=== PATIENT | male | born 1970 | race Caucasian/White ===

== ENCOUNTER 2017-10-05 14:27 | Outpatient (CLI) | payer OTHER, SELFPAY ==
--- NOTE | 2017-10-05 14:30 | DI.RAD.S_ITS ---
PROCEDURE: PAIN L/S TRANSFORAMINAL INJECT INDICATIONS: PAIN FINDINGS: Fluoroscopic spot filming was performed to verify placement of spinal needles at the right L1 to neural foramen level(s), as labeled on the films. Appropriate location(s) of the needle tip(s) was confirmed by injection of iodinated contrast. IMPRESSION: Successful right L1 to neural foraminal needle tip localization for transforaminal epidural steroid injection. Dictated by: Mark Chambers M.D. on 10/05/2017 at 16:41 Approved by: Mark Chambers M.D. on 10/05/2017 at 16:42
[2017-10-05 14:34] VITALS: BP 112/73; PULSE 84; RESP 15; TEMP 36.4; O2SAT 97
--- NOTE | 2017-10-05 15:02 | PM.PROC.1 ---
Procedures Date/Time Date of procedure: 10/05/17 Time of procedure: 15:35 General Procedure description: POST OP DIAGNOSIS 1. HNP WITH RADICULAR FEATURES, 2. MULTILEVEL CENTRAL STENOSIS, PROCEDURES 1. FLUORSCOPICALLY GUIDED CONTRAST CONTROLLED INTERLAMINAR EPIDURAL STEROID INJECTION - L1/2 PHYSICIAN: DO CONSTANTINE Kern Nacho is referred by Dr. Gonzalez for treatment of Bilateral Foraminal Stenosis L>R LE symptoms. FINDINGS Multilevel Central Spinal Stenosis with Nerve Root Compression DESCRIPTION OF PROCEDURE Fluoroscopically guided, contrast-controlled L1/2 translaminar epidural steroid injection. Following denial of allergy and review of potential side effects and complications, including, but not necessarily limited to, infection, allergic reaction, local tissue breakdown, temporary as well as permanent nerve injury, paralysis, stroke and possible , the patient indicated that the patient understood and agreed to proceed. An informed consent document was signed by the patient, witnessed by a nurse, and placed in the patient's chart. Additionally, other treatment options including modalities, medications, and physical therapy were reviewed with the patient. In the prone position, following sterile prep and drape of the lumbar region, the L1/2 translaminar space was identified fluoroscopically. The skin was anesthetized via a 25-gauge, 1.5-inch needle with 1% lidocaine solution. At this point, a 22-gauge short bevel spinal needle was atraumatically introduced and advanced under fluoroscopic guidance into the region of the L1/2 translaminar space. Depth was confirmed on lateral view. Radiological data, including multiple fluoroscopic views of the lumbar spine, reveal a spinal needle at the L1/2 translaminar space. Lateral views then show placement of the needle in the epidural space. Subsequent views show contrast material flowing superiorly and inferiorly in the epidural space. No vascular or intrathecal uptake is observed. At this point, using loss of resistance technique with saline and air, the epidural space was entered. This was confirmed following negative aspiration with injection of approximately 1.5 cc of Isovue 200, showing excellent epidural flow without vascular or intrathecal uptake. At this point, 1 cc of 1% lidocaine solution combined with 3 cc or 20 mg of dexamethasone and 80mg Depo medrol was injected without incident. The patient was then transferred to the recovery area where they were observed for an appropriate period of time after the injection.The procedure tolerated the procedure well without signs or symptoms of complications prior to transfer to the recovery area continued monitoring without incident. The patient reported a VAS score of 6 prior to the procedure and a post-procedure VAS of 0. Total Fluoroscopy Time: 11.8 seconds Total Conscious Sedation Time: 24min POST OP INSTRUCTIONS The patient was provided a Pain Log to continue to record their response to the target-specific procedure prior to follow-up visit with their referring physician. Additionally, specific post-injection care instructions and a contact number to our office were provided if concerns arise regarding possible complications associated with the procedure are suspected. Tee Stephen DO
[2017-10-05 15:16] VITALS: BP 124/38; PULSE 69; RESP 16; O2SAT 100
[2017-10-05 15:22] VITALS: BP 110/74; PULSE 62; RESP 16; O2SAT 100
[2017-10-05] MEDS: IOPAMIDOL 15 ML VIAL 3 ML INJ (15:23)
[2017-10-05] MEDS: BUPIVACAINE 0.25% (PF) VIAL 2 ML INJ (15:23)
[2017-10-05] MEDS: methylPREDNISolone acetate 80 MG/ML VIAL INJ (15:23)
[2017-10-05] MEDS: DEXAMETHASONE 10 MG/ML VIAL 20 MG INJ (15:23)
[2017-10-05 15:26] VITALS: BP 111/67; PULSE 64; RESP 18; O2SAT 100
--- NOTE | 2017-10-05 15:35 | P.PCN_ITS ---
Procedures Date/Time Date of procedure: 10/05/17 Time of procedure: 15:35 General Procedure description: POST OP DIAGNOSIS 1. HNP WITH RADICULAR FEATURES, 2. MULTILEVEL CENTRAL STENOSIS, PROCEDURES 1. FLUORSCOPICALLY GUIDED CONTRAST CONTROLLED INTERLAMINAR EPIDURAL STEROID INJECTION - L1/2 PHYSICIAN: DO CONSTANTINE Kern Nacho is referred by Dr. Gonzalez for treatment of Bilateral Foraminal Stenosis L> R LE symptoms. FINDINGS Multilevel Central Spinal Stenosis with Nerve Root Compression DESCRIPTION OF PROCEDURE Fluoroscopically guided, contrast-controlled L1/2 translaminar epidural steroid injection. Following denial of allergy and review of potential side effects and complications, including, but not necessarily limited to, infection, allergic reaction, local tissue breakdown, temporary as well as permanent nerve injury, paralysis, stroke and possible , the patient indicated that the patient understood and agreed to proceed. An informed consent document was signed by the patient, witnessed by a nurse, and placed in the patient's chart. Additionally, other treatment options including modalities, medications, and physical therapy were reviewed with the patient. In the prone position, following sterile prep and drape of the lumbar region, the L1/2 translaminar space was identified fluoroscopically. The skin was anesthetized via a 25-gauge, 1.5-inch needle with 1% lidocaine solution. At this point, a 22-gauge short bevel spinal needle was atraumatically introduced and advanced under fluoroscopic guidance into the region of the L1/2 translaminar space. Depth was confirmed on lateral view. Radiological data, including multiple fluoroscopic views of the lumbar spine, reveal a spinal needle at the L1/2 translaminar space. Lateral views then show placement of the needle in the epidural space. Subsequent views show contrast material flowing superiorly and inferiorly in the epidural space. No vascular or intrathecal uptake is observed. At this point, using loss of resistance technique with saline and air, the epidural space was entered. This was confirmed following negative aspiration with injection of approximately 1.5 cc of Isovue 200, showing excellent epidural flow without vascular or intrathecal uptake. At this point, 1 cc of 1 % lidocaine solution combined with 3 cc or 20 mg of dexamethasone and 80mg Depo medrol was injected without incident. The patient was then transferred to the recovery area where they were observed for an appropriate period of time after the injection.The procedure tolerated the procedure well without signs or symptoms of complications prior to transfer to the recovery area continued monitoring without incident. The patient reported a VAS score of 6 prior to the procedure and a post- procedure VAS of 0. Total Fluoroscopy Time: 11.8 seconds Total Conscious Sedation Time: 24min POST OP INSTRUCTIONS The patient was provided a Pain Log to continue to record their response to the target-specific procedure prior to follow-up visit with their referring physician. Additionally, specific post-injection care instructions and a contact number to our office were provided if concerns arise regarding possible complications associated with the procedure are suspected. Tee Stephen DO
[2017-10-05 15:41] VITALS: BP 110/61; PULSE 70; RESP 16; O2SAT 100
== END 2017-10-05 16:01 | disposition home or self-care (01) ==
LOC: RAD 14:29
PROVIDERS: PCP Family Medicine; Referring Provider Nurse Practitioner; Visit Provider Physical Medicine & Rehabilitation
DX: M51.16 Intervertebral disc disorders with radiculopathy, lumbar region (principal); M48.061 Spinal stenosis, lumbar region without neurogenic claudication
CPT/HCPCS: 64483; J1040; J1100; J2250

== ENCOUNTER → 2018-08-17 16:20 | Outpatient (CLI) | payer OTHER, SELFPAY ==
--- NOTE | 2018-08-17 16:24 | DI.RAD.S_ITS ---
PROCEDURE: XR CERVICAL SPINE 2V OR 3V INDICATIONS: neck pain TECHNIQUE: 3 view(s) of the cervical spine were acquired. COMPARISON: None. FINDINGS: Bones: No fractures or dislocations to the C7-T1 level. The lateral masses of C1 appear intact on the odontoid view. No suspicious bony lesions. There is moderate disc space narrowing at C6-7, mild to moderate C5-6. Soft tissues: No prevertebral soft tissue swelling. IMPRESSION: Degenerative changes most prominent at C6-7. Dictated by: Elizabeth Padron M.D. on 08/17/2018 at 16:52 Approved by: Elizabeth Padron M.D. on 08/17/2018 at 16:53
== END ==
PROVIDERS: PCP Family Medicine; Visit Provider Family Medicine
DX: M54.2 Cervicalgia (principal); M47.812 Spondylosis without myelopathy or radiculopathy, cervical region
CPT/HCPCS: 72040